=== PATIENT | female | born 2000 | race Caucasian/White ===

== ENCOUNTER 2018-04-18 00:30 | Emergency (ER) | payer OTHER ==
[~2018-04-18] VITALS: Ht 171.4 cm; Wt 95.5 kg
[2018-04-18 01:45] VITALS: BP 129/72
== END 2018-04-18 01:55 | disposition home or self-care (01) | DRG 563 ==
LOC: ED 00:30
DX: S93.401A Sprain of unspecified ligament of right ankle, initial encounter (principal); S90.511A Abrasion, right ankle, initial encounter; S80.811A Abrasion, right lower leg, initial encounter; X50.0XXA Overexertion from strenuous movement or load, initial encounter; Y93.89 Activity, other specified; Y92.410 Unspecified street and highway as the place of occurrence of the external cause